=== PATIENT | male | born 1970 | race Caucasian/White ===

== ENCOUNTER 2020-08-30 12:03 | Emergency (ER) | payer SELFPAY ==
--- NOTE | 2020-08-30 13:49 | ED Physician Documentation ---
History of Present Illness - Stated complaint Stated Complaint: LEFT LEG PX - Chief complaint Chief Complaint: Ext Problem - History obtained from History obtained from: Patient - History of Present Illness Pain level max: 7 Pain level now: 5 - Additonal information Additional information: 50-year-old male who presents to the emergency department left calf pain for the past 3 to 4 days. Worse with moving, better with rest. He states he recently was on a long road trip around [facility] and [facility]. Is not on any medications at home. No chest pain. No shortness of breath. Has never had similar symptoms previously. Denies any trauma. No history of blood clots. Review of Systems Ten Systems: 10 systems reviewed and negative Constitutional: denies: Fever Nose: denies: Rhinorrhea / runny nose, Congestion Cardiac: denies: Chest pain / pressure, Palpitations, Calf pain Respiratory: denies: Dyspnea, Cough, Wheezing GI: denies: Vomiting, Diarrhea Skin: denies: Rash Musculoskeletal: denies: Neck pain, Back pain Neurologic: denies: Headache PD PAST MEDICAL HISTORY - Past Medical History Past Medical History: No - Past Surgical History Past Surgical History: Yes General: Bowel surgery - Present Medications Home Medications: Ambulatory Orders Medication Instructions Recorded Confirmed Acetaminophen/Cod 300/30 [Tylenol 1 each PO Q4-6H PRN #10 tablet 02/03/15 #3] Azithromycin [Zithromax Tri-Kameron] 500 mg PO DAILY 02/03/15 02/03/15 Clindamycin [Cleocin] 300 mg PO Q6H 7 Days capsule 02/03/15 Ondansetron Odt [Zofran] 4 mg TL Q6H PRN #10 tablet 02/03/15 Saccharomyces Boulardii [Florastor] 500 mg PO BIDWM #40 capsule 02/03/15 HYDROcod/ACETAM 5/325 [[place] 5/325] 1 - 2 ea PO Q6H PRN #14 tablet 08/30/20 Rivaroxaban [Xarelto] 15 mg PO BID #42 tablet 08/30/20 Rivaroxaban [Xarelto] 20 mg PO DAILY #30 tablet 08/30/20 - Allergies Allergies/Adverse Reactions: Allergies Allergy/AdvReac Type Severity Reaction Status Date / Time Penicillins Allergy Unknown Verified 08/30/20 12:21 Sulfa (Sulfonamide Allergy Unknown Verified 08/30/20 12:21 Antibiotics) - Social History Does the pt smoke?: No Smoking Status: Never smoker Does the pt drink ETOH?: No Does the pt have substance abuse?: No PD ED PE NORMAL - Vitals Vital signs reviewed: Yes - General General: Alert and oriented X 3, No acute distress, Well developed/nourished - HEENT HEENT: Moist mucous membranes - Neck Neck: Supple, no meningeal sign - Cardiac Cardiac: RRR, Strong equal pulses - Respiratory Respiratory: No respiratory distress, Clear bilaterally - Abdomen Abdomen: Soft, Non tender, Non distended - Back Back: No spinal TTP - Derm Derm: Warm and dry - Extremities Extremities: Other (No edema in the bilateral lower extremities. Tenderness to palpation over the posterior left calf. Normal skin color. No erythema. NVI) - Neuro Neuro: Alert and oriented X 3 - Psych Psych: Normal mood, Normal affect Results - Vitals Vitals: Vital Signs - 24 hr 08/30/20 08/30/20 12:18 14:58 Temperature 36.0 C L 37.1 C Heart Rate 95 85 Respiratory 16 16 Rate Blood Pressure 127/75 122/72 O2 Saturation 95 95 Oxygen O2 Source Room air - Rads (name of study) duplex US LLE Radiology: Prelim report reviewed, EMP read contemporaneously, See rad report PD MEDICAL DECISION MAKING - ED course Complexity details: reviewed results, re-evaluated patient, considered differential, d/w patient ED course: 50-year-old male with a superficial thrombophlebitis of the left lower leg, that extends into the deep venous system. We will place him on Xarelto.. Discussion regarding different anticoagulants including warfarin, patient elects to go with Xarelto. Patient does not currently have a PCP, therefore we will prescribe him his first 51 days of medications to allow him time to obtain an appointment with the clinic. Patient is otherwise asymptomatic. Patient counseled regarding signs and symptoms for which I believe and urgent re- evaluation would be necessary. Patient with good understanding of and agreement to plan and is comfortable going home at this time This document was made in part using voice recognition software. While efforts are made to proofread this document, sound alike and grammatical errors may occur. IMPRESSION: Superficial thrombophlebitis involving multiple superficial veins of the left lower leg with extension of thrombus into the deep venous system, involving the distal most margin of the popliteal vein. Departure - Departure Disposition: 01 Home, Self Care Clinical Impression: DVT (deep venous thrombosis) Qualifiers: DVT location: lower extremity Affected thrombotic vein of extremity: unspecified vein of extremity Chronicity: acute Laterality: left Qualified Code(s): I82.402 - Acute embolism and thrombosis of unspecified deep veins of left lower extremity Condition: Good Instructions: [place] [facility] [place] [facility]] [facility] [Provider Group] Prescriptions: HYDROcod/ACETAM 5/325 [[place] 5/325] 1 - 2 ea PO Q6H PRN #14 tablet PRN Reason: Pain Rivaroxaban [Xarelto] 15 mg PO BID #42 tablet Rivaroxaban [Xarelto] 20 mg PO DAILY #30 tablet Comments: We will start you on Xarelto for the DVT. You need to start with 15 mg by mouth twice a day for the first 21 days, then 20 mg daily until released by your doctor. Please call the clinic tomorrow to set up an appointment. This may take some time to get you an appointment. As we discussed, this is a blood thinner and you need to be very cautious about any traumatic activities. If you suffer any head injury you need to be seen in the emergency department right away. You also need to be evaluated after any car accidents or other traumas. Return if you notice signs of bleeding such as blood in the stool. Do not drink alcohol or drive while on narcotic pain medicine. Note that many narcotic pain relievers also contain tylenol/acetaminophen. Please ensure that your total dose of acetaminophen from all sources does not exceed 3 grams (3000mg) per day. You may constipated on this medication, take a stool softener such as "Colace" twice a day while you are on it. Also recommend a [id number] laxative such as senna or MiraLAX any day that you do not have a bowel movement. If you received narcotic pain medication in the emergency department, do not drive or operate machinery for the next 24 hours. Discharge Date/Time: 08/30/20 15:05
--- NOTE | 2020-08-30 14:29 | Ultrasound Report ---
PROCEDURE: Duplex Ext Veins Left INDICATIONS: L calf pain TECHNIQUE: Real-time imaging, as well as color and pulse Doppler interrogation, were performed of the lower extr emity deep veins from the inguinal ligament to the popliteal fossa. COMPARISON: None. FINDINGS: There are thrombi identified in multiple superficial veins of the left calf predominantly in the lesser saphenous vein and gastrocnemius veins. Thrombus is also noted extending from the lesse r saphenous vein due to the popliteal vein junction with minimal extension into the distal most lukas ns of the popliteal vein. The remaining deep veins are normally compressible, and free of intralumina l thrombus. Color and pulse Doppler demonstrate normal phasic intraluminal flow. There is normal au gmentation response to distal compression maneuver. IMPRESSION: Superficial thrombophlebitis involving multiple superficial veins of the left lower leg with extension of thrombus into the deep venous system, involving the distal most margin of the popli teal vein. Reviewed by: Zion Stewart MD on 08/30/2020 1:27 PM TYRELL Approved by: Zion Stewart MD on 08/30/2020 1:27 PM TYRELL Station ID: [id number]
[2020-08-30] MEDS ORDERED: RIVAROXABAN 15 MG TABLET PO STA (14:37)
[2020-08-30 14:59] VITALS: BP 122/72
== END 2020-08-30 15:05 | disposition home or self-care (01) ==
LOC: ED 12:03
DX: I82.432 Acute embolism and thrombosis of left popliteal vein (principal)
CPT/HCPCS: 93971; 99284; A9270

== ENCOUNTER 2020-10-12 21:09 | Outpatient (CLI) | payer SELFPAY ==
--- NOTE | 2020-10-13 12:45 | Ultrasound Report ---
PROCEDURE: Duplex Ext Veins Left INDICATIONS: DVT LEFT LOWER EXTREMITY TECHNIQUE: Real-time imaging, as well as color and pulse Doppler interrogation, were performed of the lower extr emity deep veins from the inguinal ligament to the popliteal fossa. COMPARISON: None. FINDINGS: The deep veins are normally compressible, and free of intraluminal thrombus. Color and pu lse Doppler demonstrate normal phasic intraluminal flow. There is normal augmentation response to di stal compression maneuver. There is a 2.3 x 0.6 x 1.3 cm left popliteal cyst. IMPRESSION: No evidence of the vein thrombosis involving the left lower extremity. Reviewed by: Krupa Gambino MD, PhD on 10/13/2020 12:43 PM PDT Approved by: Krupa Gambino MD, PhD on 10/13/2020 12:43 PM PDT Station ID: [id number]
== END 2020-10-12 21:10 | disposition home or self-care (01) ==
LOC: DI 21:09
PROVIDERS: ATTEND Registered Nurse
DX: I82.402 Acute embolism and thrombosis of unspecified deep veins of left lower extremity (principal)